=== PATIENT | male | born 1995 | race African-American/Black ===

== ENCOUNTER 2017-11-27 15:05 | Emergency (ER) | payer BC, SELFPAY ==
[2017-11-27] MEDS ORDERED: predniSONE 20 MG TAB ONE (15:38)
--- NOTE | 2017-11-27 15:57 | RAD ---
PA AND LATERAL CHEST: History: Cough, flu-like symptoms. FINDINGS: Comparison is made with exam of 02-17-15. The cardiomediastinum is normal. The lungs are clear. The bony thorax is normal. IMPRESSION: Normal exam. POS: [id number]
== END 2017-11-27 16:45 | disposition home or self-care (01) ==
LOC: NAV ERS 15:05
DX: J45.909 Unspecified asthma, uncomplicated (principal)
CPT/HCPCS: 71046; 94640; J7506; J7620

== ENCOUNTER 2018-04-21 03:22 | Emergency (ER) | payer SELFPAY ==
[2018-04-21] MEDS ORDERED: Fluorescein Opthalmic Strip ONE (03:44)
[2018-04-21] MEDS ORDERED: diphenhydrAMINE 50 MG/ML VIAL ONE (03:57)
[2018-04-21] MEDS ORDERED: methylPREDNISolone Sod Succ/PF 125 MG/2 ML VIAL ONE (03:57)
== END 2018-04-21 04:39 | disposition home or self-care (01) ==
LOC: NAV ERS 03:22
DX: H10.12 Acute atopic conjunctivitis, left eye (principal); J30.9 Allergic rhinitis, unspecified; Z79.899 Other long term (current) drug therapy
CPT/HCPCS: 96374; 96375; J1200; J2930

== ENCOUNTER 2018-05-17 11:58 | Emergency (ER) | payer SELFPAY ==
[2018-05-17] MEDS ORDERED: predniSONE 20 MG TAB ONE (12:08)
[2018-05-17] MEDS ORDERED: diphenhydrAMINE 50 MG/ML VIAL ONE (12:08)
== END 2018-05-17 12:52 | disposition home or self-care (01) ==
LOC: NAV ERS 11:58
DX: L50.0 Allergic urticaria (principal); J45.909 Unspecified asthma, uncomplicated
CPT/HCPCS: 96372; J1200; J7506

== ENCOUNTER 2020-08-06 10:35 | Emergency (ER) | payer SELFPAY | END 2020-08-06 11:11 | disposition home or self-care (01) | LOC: NAV ERS 10:35 | DX: T78.40XA Allergy, unspecified, initial encounter (principal); J45.909 Unspecified asthma, uncomplicated; Z79.51 Long term (current) use of inhaled steroids | CPT/HCPCS: 99283 ==